=== PATIENT | female | born 1975 ===

== ENCOUNTER 2016-04-21 11:02 | Emergency (ER) | payer OTHER ==
[~2016-04-21] VITALS: Ht 152.4 cm; Wt 56.0 kg
[2016-04-21 11:09] VITALS: TEMP 36.9; Ht 152.4 cm; Wt 56.0 kg
[2016-04-21] MEDS ORDERED: AZITTAB PO (11:32)
[2016-04-21] MEDS ORDERED: SERT50TA PO (11:32)
[2016-04-21] MEDS ORDERED: MULT1CHW28 PO (11:32)
[2016-04-21] MEDS ORDERED: NAPR-1169 PO (11:32)
[2016-04-21] MEDS ORDERED: HOME1TAB PO (11:32)
[2016-04-21] MEDS ORDERED: SPIR25TA PO (11:32)
[2016-04-21 11:35] LABS: HEMATOCRIT 40.6 % (37-47); MEAN CELL VOLUME 96.9 fL (80-100); MEAN CORPUSCULAR HEMOGLOBIN 32.9 pg (25-34); PLATELET COUNT 255 K/uL (130-400); RED BLOOD COUNT 4.19 M/uL (4.2-5.4); WHITE BLOOD COUNT 9.55 K/uL (4.8-10.8)
[2016-04-21 11:37] LABS: URINE APPEARANCE CLEAR (CLEAR); URINE BILIRUBIN NEG (NEG); URINE COLOR YELLOW; URINE NITRITE NEG (NEG); URINE PH 5.5 (4.5-7.5); URINE SPECIFIC GRAVITY 1.002 (1.000-1.030); UROBILINOGEN NEG (NEG); ZZUR CULT IF INDIC CLEAN CATCH NO
[2016-04-21] MEDS ORDERED: ONDANSETRON INJ 2 MG/ML 2 ML VIAL IV STA (11:37)
[2016-04-21] MEDS ORDERED: KETOROLAC TROMETHAMINE 30 MG/ML VIAL IV STA (11:37)
[2016-04-21] MEDS ORDERED: MoRPHine SULFATE 10 MG/ML CARP/VIAL IV STA (11:37)
[2016-04-21 11:38] LABS: MANUAL MICROSCOPIC REQUIRED? NO; REVIEW REQ? NO
[2016-04-21 11:50] LABS: BASO % 0.4 %; BASO ABS # 0.04 K/uL (0-0.2); COMPLETE YES; EOS % 2.5 %; IG% 0.4 %; LYMPH % 21.4 %; LYMPH ABS # 2.13 K/uL (1.2-3.4); MONO % 6.6 %; NEUT % 68.7 %
[2016-04-21 11:55] LABS: BUN/CREATININE RATIO 13.2 (10-20); CALCIUM 8.7 mg/dl (8.5-10.1); CREATININE 0.79 mg/dl (0.60-1.20); POTASSIUM 4.2 mmol/L (3.5-5.1)
--- NOTE | 2016-04-21 12:49 | DIAGNOSTIC IMAGING REPORT ---
CT SCAN OF THE ABDOMEN AND PELVIS WITHOUT IV CONTRAST CLINICAL HISTORY: Left flank pain. COMPARISON STUDY: No priors. TECHNIQUE: CT scan of the abdomen and pelvis is performed from the lung bases to the proximal femora. Images are reviewed in the axial, sagittal, and coronal planes. IV contrast was not administered for this examination. Automated dose control exposure was utilized. CT DOSE: 259.65 mGy.cm FINDINGS: Lung bases: The heart is normal in size and without pericardial effusion. The lung bases are clear noting minimal dependent atelectasis. Bilateral breast implants are partially visualized. There is a small hiatal hernia. Liver: The unenhanced liver is enlarged, measuring 18.6 cm in length. Liver demonstrates diffusely diminished attenuation consistent with hepatic steatosis. There is no intrahepatic biliary ductal dilatation. Gallbladder: Unremarkable. Spleen: Normal in size and attenuation. Pancreas: Unremarkable. Adrenal glands: Unremarkable. Kidneys: The unenhanced kidneys are normal in size and without hydronephrosis. A 4 mm nonobstructing left renal calculi is identified. There are at least 5 nonobstructing right renal calculi measuring up to 7 mm. There is no evidence of contour deforming renal mass lesion. Abdominal vasculature: The abdominal aorta is normal in course and caliber. Bowel: The small bowel and colon are normal in course and caliber. There is mild to moderate colonic fecal retention. The appendix is well-visualized and normal. Peritoneum: There is no intraperitoneal free air or abdominal ascites. There is a small fat-containing umbilical hernia. Lymphadenopathy: None. Pelvic viscera: A 3 mm calculus is present in the bladder on image #[id number]. The bladder, uterus, and adnexa are otherwise normal as visualized. There are bilateral ovarian follicles. Numerous phleboliths are seen in the pelvis. There is trace free fluid in the cul-de-sac. Skeletal structures: No lytic or blastic lesions are seen. IMPRESSION: 1. There are bilateral nonobstructing renal calculi as above. No obstructing ureteral calculus is clearly seen and there is no hydronephrosis. 2. There is a 3 mm calculus in the bladder. This may represent a recently passed kidney stone. 3. Hepatomegaly and hepatic steatosis. 4. There is trace free fluid in the cul-de-sac, likely within physiologic limits. Electronically signed by: Javier Madrid M.D. 04/21/2016 12:47 PM Dictated Date/Time: 04/21/2016 12:38 PM
[2016-04-21] MEDS ORDERED: ONDA4TAB10 SL (13:10)
[2016-04-21] MEDS ORDERED: OXYC1TAB3 PO (13:10)
--- NOTE | 2016-04-21 13:11 | EMERGENCY ROOM VISIT NOTE ---
History First contact with patient: 11:31 Chief Complaint: KIDNEY STONE Stated Complaint: KIDNEY STONES History of Present Illness The patient is a 40 year old female who presents to the Emergency Room with complaints of left flank pain today. The patient has been having some lower abdominal cramping but she thought it was due to her menses. She does have a history of kidney stones. The patient is here visiting for her daughter's orientation to [facility]. She resides in [place]. The patient denies any hematuria, urinary urgency or dysuria. The patient admits to some nausea but denies any vomiting. She has an appointment with her urologist on Saturday. She called him today but he was unable to call in pain medication since she is in a different state. She is mainly here for pain control. Review of Systems 10 system review was performed and was negative unless stated otherwise history of present illness. Past Medical/Surgical History Kidney stones, lithotripsy Social History Smoking Status: Current Every Day Smoker Alcohol Use: occasionally Marital Status: Housing Status: lives with family Occupation Status: employed Current/Historical Medications Scheduled Azithromycin (Zithromax Z-Armin), 1 PKT PO UD Sertraline (Zoloft), 50 MG PO DAILY Spironolactone (Aldactone), 25 MG PO DAILY Scheduled PRN Homeopathic Products (Zicam Cold Remedy), 1 TAB PO UD PRN for cold symptoms Multiple Vitamins W/ Minerals (Airborne), 1 TAB PO UD PRN for cold symptoms Naproxen (Naprosyn), 500 MG PO BID PRN for Pain Allergies Coded Allergies: Penicillins (Verified Allergy, Unknown, RASH, 04/21/16) Doxycycline (Verified Adverse Reaction, Unknown, n/v/d, 04/21/16) Physical Exam Vital Signs Date Time Temp Pulse Resp B/P Pulse Ox O2 Delivery O2 Flow Rate FiO2 04/21/16 11:09 36.9 79 20 126/83 98 Room Air Physical Exam GENERAL: Patient is alert oriented in no acute distress. MENTAL Status: Alert and oriented 3 MOUTH: Mucosa is moist NECK: Supple, no lymphadenopathy noted. No carotid bruits noted. LUNGS: Clear auscultation without wheezes rales or rhonchi. CARDIAC: Regular rate and rhythm without murmur. Pulses is full and equal throughout. BACK: No CVA tenderness noted. ABDOMEN: Positive bowel sounds all 4 quadrants. Soft, nontender to palpation without organomegaly or masses. EXTREMITIES: No cyanosis or edema noted. Medical Decision & Procedures ER Provider Diagnostic Interpretation: CT SCAN OF THE ABDOMEN AND PELVIS WITHOUT IV CONTRAST CLINICAL HISTORY: Left flank pain. COMPARISON STUDY: No priors. TECHNIQUE: CT scan of the abdomen and pelvis is performed from the lung bases to the proximal femora. Images are reviewed in the axial, sagittal, and coronal planes. IV contrast was not administered for this examination. Automated dose control exposure was utilized. CT DOSE: 259.65 mGy.cm FINDINGS: Lung bases: The heart is normal in size and without pericardial effusion. The lung bases are clear noting minimal dependent atelectasis. Bilateral breast implants are partially visualized. There is a small hiatal hernia. Liver: The unenhanced liver is enlarged, measuring 18.6 cm in length. Liver demonstrates diffusely diminished attenuation consistent with hepatic steatosis. There is no intrahepatic biliary ductal dilatation. Gallbladder: Unremarkable. Spleen: Normal in size and attenuation. Pancreas: Unremarkable. Adrenal glands: Unremarkable. Kidneys: The unenhanced kidneys are normal in size and without hydronephrosis. A 4 mm nonobstructing left renal calculi is identified. There are at least 5 nonobstructing right renal calculi measuring up to 7 mm. There is no evidence of contour deforming renal mass lesion. Abdominal vasculature: The abdominal aorta is normal in course and caliber. Bowel: The small bowel and colon are normal in course and caliber. There is mild to moderate colonic fecal retention. The appendix is well-visualized and normal. Peritoneum: There is no intraperitoneal free air or abdominal ascites. There is a small fat-containing umbilical hernia. Lymphadenopathy: None. Pelvic viscera: A 3 mm calculus is present in the bladder on image #[id number]. The bladder, uterus, and adnexa are otherwise normal as visualized. There are bilateral ovarian follicles. Numerous phleboliths are seen in the pelvis. There is trace free fluid in the cul-de-sac. Skeletal structures: No lytic or blastic lesions are seen. IMPRESSION: 1. There are bilateral nonobstructing renal calculi as above. No obstructing ureteral calculus is clearly seen and there is no hydronephrosis. 2. There is a 3 mm calculus in the bladder. This may represent a recently passed kidney stone. 3. Hepatomegaly and hepatic steatosis. 4. There is trace free fluid in the cul-de-sac, likely within physiologic limits. Electronically signed by: Javier Madrid M.D. 04/21/2016 12:47 PM Dictated Date/Time: 04/21/2016 12:38 PM Laboratory Results 04/21/16 11:15 Red Blood Count 4.19, Mean Corpuscular Volume 96.9, Mean Corpuscular Hemoglobin 32.9, Mean Corpuscular Hemoglobin Concent 34.0, Mean Platelet Volume 9.0, Neutrophils (%) (Auto) 68.7, Lymphocytes (%) (Auto) 21.4, Monocytes (%) (Auto) 6.6, Eosinophils (%) (Auto) 2.5, Basophils (%) (Auto) 0.4, Neutrophils # (Auto) 6.85, Lymphocytes # (Auto) 2.13, Monocytes # (Auto) 0.66, Eosinophils # (Auto) 0.25, Basophils # (Auto) 0.04 04/21/16 11:15 Test 04/21/16 11:15 04/21/16 11:27 White Blood Count 9.55 K/uL (4.8-10.8) Red Blood Count 4.19 M/uL (4.2-5.4) Hemoglobin 13.8 g/dL (12.0-16.0) Hematocrit 40.6 % (37-47) Mean Corpuscular Volume 96.9 fL (80-100) Mean Corpuscular Hemoglobin 32.9 pg (25-34) Mean Corpuscular Hemoglobin Concent 34.0 g/dl (32-36) Platelet Count 255 K/uL (130-400) Mean Platelet Volume 9.0 fL (7.4-10.4) Neutrophils (%) (Auto) 68.7 % Lymphocytes (%) (Auto) 21.4 % Monocytes (%) (Auto) 6.6 % Eosinophils (%) (Auto) 2.5 % Basophils (%) (Auto) 0.4 % Neutrophils # (Auto) 6.85 K/uL (1.4-6.5) Lymphocytes # (Auto) 2.13 K/uL (1.2-3.4) Monocytes # (Auto) 0.66 K/uL (0.11-0.59) Eosinophils # (Auto) 0.25 K/uL (0-0.5) Basophils # (Auto) 0.04 K/uL (0-0.2) RDW Standard Deviation 49.3 fL (36.4-46.3) RDW Coefficient of Variation 14.0 % (11.5-14.5) Immature Granulocyte % (Auto) 0.4 % Immature Granulocyte # (Auto) 0.04 K/uL (0.00-0.02) Nucleated RBC Absolute Count (auto) 0.00 K/uL (0-0) Nucleated Red Blood Cells % 0.0 % Urine Color YELLOW Urine Appearance CLEAR (CLEAR) Urine pH 5.5 (4.5-7.5) Urine Specific [place] 1.002 (1.000-1.030) Urine Protein NEG (NEG) Urine Glucose (UA) NEG (NEG) Urine Ketones NEG (NEG) Urine Occult Blood NEG (NEG) Urine Nitrite NEG (NEG) Urine Bilirubin NEG (NEG) Urine Urobilinogen NEG (NEG) Urine Leukocyte Esterase NEG (NEG) Urine WBC (Auto) 1-5 /hpf (0-5) Urine RBC (Auto) 0-4 /hpf (0-4) Urine Hyaline Casts (Auto) 0 /lpf (0-5) Urine Epithelial Cells (Auto) 5-10 /lpf (0-5) Urine Bacteria (Auto) NEG (NEG) Anion Gap 8.0 mmol/L (3-11) Est Creatinine Clear Calc Drug Dose 75.0 ml/min Estimated GFR () 109.3 Estimated GFR (Non- 94.3 BUN/Creatinine Ratio 13.2 (10-20) Calcium Level 8.7 mg/dl (8.5-10.1) Urine Test NEG (NEG) Medications Administered Medications (Trade) Dose Ordered Sig/Abner Route Start Time Stop Time Status Last Admin Dose Admin Ketorolac Tromethamine (Toradol Inj) 30 mg NOW STAT IV 04/21/16 11:37 04/21/16 11:40 DC 04/21/16 11:47 30 MG Ondansetron HCl (Zofran Inj) 4 mg NOW STAT IV 04/21/16 11:37 04/21/16 11:40 DC 04/21/16 11:47 4 MG Morphine Sulfate (MoRPHine SULFATE INJ) 6 mg NOW STAT IV 04/21/16 11:37 04/21/16 11:40 DC 04/21/16 11:48 6 MG ED Course The patient was evaluated. IV access was obtained The patient was given morphine 6 mg IV and Zofran 4 mg IV push. She is also given Toradol 30 mg IV. She was given 1 L normal saline wide-open. CBC and differential, renal profile , urinalysis was ordered. Labs are reviewed and were unremarkable. Urinalysis was negative. CT sensate was ordered and interpreted as above with a 3 mm stone in the bladder which most likely represents a recently passed stone. The patient was informed of the findings and reevaluated. The patient is feeling better. The patient was discharged home in stable condition. Medical Decision Differential diagnosis include UTI, pyelonephritis, ureteral calculi, recently passed stone Impression Primary Impression: Flank pain Additional Impression: Kidney stones Departure Information Dispostion Home / Self-Care Condition GOOD Prescriptions Ondasetron Odt (ZOFRAN ODT) 4 Mg Tab 4 MG SL Q6H for Nausea, #10 TAB Prov: Shannon Padilla PA-C 04/21/16 Oxycodone Immediate Rel Tab (ROXICODONE IR) 5 Mg Tab 1-2 TAB PO Q6 Y for Pain, #20 TAB Prov: Shannon Padilla PA-C 04/21/16 Referrals No Doctor, Assigned (PCP) Forms HOME CARE DOCUMENTATION FORM, IMPORTANT VISIT INFORMATION Patient Instructions Kidney Stones - [facility], [facility] Additional Instructions Ibuprofen 600 mg every 6 hours with food for pain. Take Zofran as needed for nausea. Take OxyIR as needed for more severe pain. Do not drive while taking the OxyIR. Strain all urine. Push fluids. Keep scheduled appointment with your urologist. If symptoms worsen in the interim, return to ER. Problem Qualifiers
[2016-04-21 13:19] VITALS: BP 96/57; PULSE 69; O2SAT 95
== END 2016-04-21 13:20 | disposition home or self-care (01) ==
LOC: C.EDB 11:05 → C.EDC 13:20
DX: N20.0 Calculus of kidney (principal); F17.200 Nicotine dependence, unspecified, uncomplicated; Z87.442 Personal history of urinary calculi